=== PATIENT | male | born 1965 | race African-American/Black ===

== ENCOUNTER 2020-02-27 03:28 | Inpatient (IN) | payer OTHER ==
[2020-02-27] MEDS ORDERED: Morphine 4 MG/ML VIAL ONE (03:46)
[2020-02-27] MEDS ORDERED: Ondansetron PF 4 MG/2 ML Vial ONE ×2 (03:47→04:12)
[2020-02-27 04:07] LABS: Bacteria/HPF None Seen HPF (None Seen); Bilirubin Negative (Negative); Blood, Urine Negative (Negative); Clarity Clear (Clear); Glucose, Urine (Dipstick) Normal (Negative); Leukocyte Negative Leu/uL (Negative); Nitrite Negative (Negative); Protein, Urine (Dipstick) 30 mg/dL (Neg-Trace); RBC/HPF 0-3 HPF (0-3); Renal Epithelial 0-3 HPF (None Seen); Squamous Epithelial 0-3 HPF (0-3); WBC/HPF 0-3 HPF (0-3)
[2020-02-27 04:24] LABS: #Lymphocytes 2.2 thou/uL (1.20-3.40); #Monocytes 0.8 thou/uL (0.11-0.59); #Neutrophils 6.7 thou/uL (1.40-6.50); %Basophils 0.5 % (0.0-1.0); %Eosinophils 0.4 % (0.0-10.0); %Lymphocytes 22.7 % (21.0-51.0); %Monocytes 8.3 % (0.0-10.0); %Neutrophils 68.2 % (42.0-75.0); Hemoglobin 14.4 g/dL (14.0-18.0); Mean Corpuscular HGB CONC 35.6 g/dL (32.0-36.0); Mean Corpuscular Hemoglobin 35.5 pg (27.0-31.0); Mean Corpuscular Volume 99.6 fL (78.0-98.0); Mean Platelet Volume 9.8 fL (7.4-10.4); Platelet Count 199 thou/uL (130-400); RBC Distribution Width 12.5 % (11.5-14.5); Red Blood Cell (RBC) Count 4.06 mill/uL (4.70-6.10); White Blood Cell (WBC) Count 9.8 thou/uL (4.8-10.8)
[2020-02-27 04:54] LABS: Lipase 1430 U/L (8-78)
[2020-02-27 05:01] LABS: ALT (SGPT) 46 U/L (8-55); AST (SGOT) 57 U/L (5-34); Albumin 3.3 g/dL (3.5-5.0); Alkaline Phosphatase 87 U/L (40-110); Anion Gap 15 mmol/L (10-20); BUN (Urea Nitrogen) 7 mg/dL (8.4-25.7); Bilirubin, Total 2.7 mg/dL (0.2-1.2); Calc. Creatinine Clearance 0 mL/min (70-130); Calcium 8.3 mg/dL (7.8-10.44); Carbon Dioxide 21 mmol/L (22-29); Chloride 95 mmol/L (98-107); Estimated GFR-MDRD Greater than 90; Globulin 5.8 g/dL (2.4-3.5); Glucose 131 mg/dL (70-105); Potassium 3.5 mmol/L (3.5-5.1); Protein, Total 9.1 g/dL (6.0-8.3); Sodium 127 mmol/L (136-145)
[2020-02-27] MEDS ORDERED: Ondansetron PF 4 MG/2 ML Vial IVP PRN (05:35)
--- NOTE | 2020-02-27 06:06 | HP ---
CHIEF COMPLAINT: Abdominal pain. HISTORY: This patient is a 54-year-old male, who presented via the emergency department. The patient was last admitted here in 2013 with pancreatitis related to alcohol abuse. The patient presented again today with similar findings. The patient reports that he was drinking as usual on his days of Monday and Monday, drinks up to 18 beers at that time. He was at work today, around 11 o'clock started experiencing some sharp pain across his upper abdomen and radiating to his back. He forced himself to vomit thinking it might help, but it did not, eating made it worse, ultimately came to the point where he could not tolerate it anymore, so he came to the emergency department. Denies any fevers, chills, diarrhea or constipation. REVIEW OF SYSTEMS: All other systems reviewed. All other systems were negative except for those things mentioned in history of present illness. PAST MEDICAL HISTORY: Notable for pancreatitis and alcohol abuse. PAST SURGICAL HISTORY: None. FAMILY HISTORY: Father has diabetes. He is unsure of his mother's situation. ALLERGIES: NONE. MEDICATIONS: None. PHYSICAL EXAMINATION: VITAL SIGNS: BP 127/108, pulse 106, respirations 14, and O2 sat 93% on room air. GENERAL APPEARANCE: Age-appropriate male, in no distress, awake, alert, oriented, pleasant, and cooperative. HEENT: PERRL. No OP lesions. NECK: Supple and symmetric. HEART: Regular rate and rhythm without murmurs, gallops or rubs. LUNGS: Clear to auscultation bilaterally with good chest wall expansion and air exchange. ABDOMEN: Soft and nondistended. Diffusely tender across the entire upper abdomen with modest voluntary guarding. No rebound. No hepatosplenomegaly. EXTREMITIES: No cyanosis, clubbing or edema. PSYCHIATRIC: Normal affect and behavior. NEUROLOGIC: Cognitively intact. Cranial nerves intact. No evidence of focal deficits. LABORATORY DATA: White count 9.8, hemoglobin 14.4, and platelets 199. Sodium 127, potassium 3.5, chloride 95, CO2 of 21, BUN 7, creatinine 0.79, and glucose 131. Total bilirubin 2.7, AST 57, and ALT 46. Lipase 1430. Urinalysis negative. DIAGNOSTIC DATA: CT abdomen and pelvis consistent with inflammation around the pancreas. IMPRESSION AND PLAN: 1. Pancreatitis and the patient with a history of pancreatitis and ongoing binge alcohol abuse. The patient will be admitted for IV fluids, pain control, and n.p.o. status. Given his slight elevation in bilirubin, may need to consider ultrasound, but certainly appears to be related to his alcohol abuse. 2. Alcohol abuse. We will give B12 and folate given his slight elevation of his MCV, although it appears to be more binge alcohol abuse rather than chronic daily use. 3. Hyponatremia, likely secondary to beer potomania. Poor intake of protein. We will see if we can get that to improve with IV fluids alone. 4. Disposition: The patient is full code. His son would be his surrogate decision maker. Job ID: [id number] MTDD
[2020-02-27 06:15] VITALS: BMI 23.6
[2020-02-27] MEDS: Morphine 2 MG/ML SYRINGE SLOW IVP PRN ×3 (06:23→23:41)
[2020-02-27] MEDS: Sodium Chloride 0.9% 1,000 ML IV SCH ×2 (06:24→21:25)
--- NOTE | 2020-02-27 08:14 | CT ---
PRELIMINARY REPORT/[facility]/EMERGENCY AFTER HOURS PROCEDURE: EXAM: CT Abdomen and Pelvis with Intravenous Contrast CLINICAL HISTORY: M54 presents to the ED with c/o upper abdominal and back pain since for 24 hours. Pt denies having n/ v today. Pt reports 24 hours of diffuse pain. No urinary s/s and no change in bowel movements. TECHNIQUE: Axial computed tomography images of the abdomen and pelvis with intravenous contrast. CONTRAST: With; ISOVUE 370,100mL COMPARISON: None provided. FINDINGS: LUNG BASES: No basilar airspace consolidation or pleural effusion. LIVER: There is a mild to moderate hepatomegaly. GALLBLADDER AND BILE DUCTS: Unremarkable. No calcified stone. No ductal dilation. PANCREAS: The pancreatic body and head is enlarged with soft tissue stranding, findings consistent wi th acute pancreatitis. SPLEEN: Unremarkable. ADRENAL GLANDS: Unremarkable. KIDNEYS, URETERS, AND BLADDER: Unremarkable. No hydronephrosis or nephrolithiasis. No ureteral or sam dder calculi. STOMACH AND BOWEL: The adjacent body of the stomach and the transverse colon showed wall thickening w ith soft tissue stranding, likely due to pancreatitis. No bowel obstruction. APPENDIX: No CT evidence for appendicitis. PERITONEUM: Small amount of ascites seen. LYMPH NODES: No lymphadenopathy. REPRODUCTIVE: Unremarkable as visualized. VASCULATURE: No aortic aneurysm. BONES: No fracture or suspicious osseous abnormality. ABDOMINAL WALL AND SOFT TISSUES: Unremarkable. IMPRESSION: 1. The pancreatic body and head is enlarged with soft tissue stranding, findings consistent with acut e pancreatitis. 2. The adjacent body of the stomach and the transverse colon showed wall thickening with soft tissue stranding, likely due to pancreatitis. 3. Small amount of ascites seen. 4. There is a mild to moderate hepatomegaly. ELECTRONICALLY SIGNED BY: Daniel Ramírez MD Feb 27, 2020 4:25:04 AM CDT This report is intended for review by the ordering physician only, in accordance of law. If you recei ve this report in error, please call [facility] at [phone]. FINAL REPORT BY DR. [facility] EMER[facility] AFTER HOURS STUDY CT ABDOMEN WITH CONTRAST CT PELVIS WITH CONTRAST: DATE: 02/27/2020 TIME: 0407 HOURS HISTORY: 54-year-old male with upper abdominal and back pain. COMPARISON: 09/14/2014. TECHNIQUE: IV injection of iodinated contrast media: 100 mL Isovue-370. Oral contrast media: Not administered. FINDINGS: Once again, the pancreatic head is enlarged, but this time greater than before, with heterogeneously minimally decreased enhancement. The pancreatic head is infiltrated by, and surrounded by a moderate volume of unorganized fluid which infiltrates the surrounding mesentery and retroperitoneal fat, extr insically compressing and narrowing the second stage of the duodenum. There is mural thickening of th e second and third stages of duodenum, secondarily involved by this pancreatic inflammatory process. The fluid tracks along the right anterior pararenal space and Morison's pouch, and travels down the r ight paracolic gutter. It spills over into the pelvic cavity centrally and bilaterally where there is a small to moderate amount of free fluid. Urinary bladder is decompressed. The inflammatory process at the pancreatic head appears worse than on the 2014 CT, although the volume of fluid tracking infer iorly is slightly less on the current study compared to previous. Liver is mildly enlarged, and has diffusely low attenuation, suggestive of fatty liver. No portal vei n thrombosis. No splenomegaly. No varices. There is also mural thickening of the mid and right transv erse colon and hepatic flexure of the colon, probably secondarily involved by the infiltrative fluid in the mesentery and portion of the upper omentum. No small bowel dilation. No pancreatic ductal dila tion. Pancreatic tail is normal. Pancreatic body is partially involved by the inflammatory process. N ormal kidneys, adrenals, and abdominal aorta. Normal appendix. This report agrees with the preliminary report by [facility]. Lung bases are grossly clear. No ascites or pneumoperitoneum. Agree with preliminary report by [facility]. IMPRESSION: 1. Moderately severe acute pancreatitis, borderline early necrotizing pancreatitis. 2. Mild hepatomegaly and probable hepatic steatosis. JNR POS: RODRIGO
[2020-02-27] MEDS: Multivitamins, Adult 10 ML, Folic Acid 1 MG, Thiamine HCl 100 MG in Dextrose 5 %-0.45 %... IV SCH (09:36)
[2020-02-27] MEDS: Enoxaparin Sodium 40 MG/0.4 ML SYRINGE SC SCH (09:40)
[2020-02-27] MEDS ORDERED: Iopamidol 370 76% 100 ML VIAL ONE (14:08)
[2020-02-27] MEDS: Acetaminophen 325 MG TAB PO PRN (16:57)
[2020-02-27] MEDS: Piperacillin/Tazobactam 3.375 GM in Sodium Chloride 0.9% 100 ML IVPB SCH ×2 (18:25→23:43)
[2020-02-28] MEDS: Acetaminophen 325 MG TAB PO PRN (00:37)
[2020-02-28] MEDS: Piperacillin/Tazobactam 3.375 GM in Sodium Chloride 0.9% 100 ML IVPB SCH ×3 (05:17→16:59)
[2020-02-28] MEDS: Multivitamins, Adult 10 ML, Folic Acid 1 MG, Thiamine HCl 100 MG in Dextrose 5 %-0.45 %... IV SCH (06:32)
[2020-02-28 06:43] LABS: ALT (SGPT) 30 U/L (8-55); AST (SGOT) 40 U/L (5-34); Albumin 2.6 g/dL (3.5-5.0); Alkaline Phosphatase 65 U/L (40-110); Anion Gap 13 mmol/L (10-20); BUN (Urea Nitrogen) 6 mg/dL (8.4-25.7); Bilirubin, Total 2.8 mg/dL (0.2-1.2); Calc. Creatinine Clearance 100 mL/min (70-130); Calcium 8.2 mg/dL (7.8-10.44); Carbon Dioxide 21 mmol/L (22-29); Chloride 105 mmol/L (98-107); Estimated GFR-MDRD Greater than 90; Globulin 4.3 g/dL (2.4-3.5); Glucose 90 mg/dL (70-105); Lipase 463 U/L (8-78); Potassium 3.5 mmol/L (3.5-5.1); Protein, Total 6.9 g/dL (6.0-8.3); Sodium 135 mmol/L (136-145)
[2020-02-28] MEDS: Enoxaparin Sodium 40 MG/0.4 ML SYRINGE SC SCH (10:11)
[2020-02-28 19:06] VITALS: BP 150/77; TEMP 99.3
--- NOTE | 2020-02-28 23:40 | DIS ---
DATE OF ADMISSION: 02/27/2020 DATE OF DISCHARGE: 02/28/2020 BRIEF DISCHARGE DIAGNOSES: Acute pancreatitis, hyponatremia, transaminitis. CONSULTATIONS: None. PROCEDURES PERFORMED: None. BRIEF HISTORY OF PRESENT ILLNESS: This is a 54-year-old male with a past medical history of alcohol abuse, pancreatitis in the past, who had presented with abdominal pain radiating to his back that progressively got worse. He denied any fevers or chills. Upon presentation to the ER, he was noted to be tachycardic to 106. His lipase was elevated at 1430 and his sodium was noted to be 127. His AST was elevated at 57. The patient did report drinking 18 beers on Monday and Monday. He had a CT scan of his abdomen and pelvis, which showed findings consistent with acute pancreatitis. He was admitted for further evaluation. HOSPITAL COURSE: Acute pancreatitis/alcohol abuse: The patient was kept n.p.o. He was given IV fluid hydration and IV morphine. He was transitioned to regular diet which he tolerated without any pain. He was determined to be stable for discharge. He was advised to avoid alcohol to prevent recurrent attacks of pancreatitis. Alcohol abuse: The patient was advised to stop drinking alcohol. He was given thiamine and folic acid on discharge due to elevated MCV. Hyponatremia: The patient did have a sodium of 127. He was given IV fluids, which improved to 137 on the day of discharge. Transaminitis: The patient had AST 57, which improved to 40 on the day of discharge. This is likely secondary to alcoholism. He was advised to have his LFTs repeated in a week. DISCHARGE PHYSICAL EXAMINATION: VITAL SIGNS: Temperature 98.8, heart rate 98, respiratory rate 20, O2 saturation 97% on room air, blood pressure 110/74. GENERAL: The patient is alert, awake, oriented x3. CVS: Regular rate and rhythm with no murmurs, rubs, or gallops. LUNGS: Clear to auscultation bilaterally. ABDOMEN: Positive bowel sounds, mild epigastric tenderness and right upper quadrant tenderness. No rebound, guarding, or rigidity. Abdomen is slightly firm to palpation. EXTREMITIES: No edema. LABORATORY DATA: CBC 02/26: Unremarkable. BMP 02/26: Sodium 127. BMP 02/27: Sodium is 135. LFTs 02/27: AST 40, ALT 30, alkaline phosphatase 65. Lipase: 1430, which improved to 463. IMAGING: CT abdomen and pelvis 02/26: Pancreatic body and has enlarged soft tissue stranding consistent with acute pancreatitis. Adjacent body of the stomach and transverse colon showed wall thickening with soft tissue stranding due to pancreatitis. Small amount of ascites is seen. Mild to moderate hepatomegaly. DISCHARGE CONDITION: Stable. ACTIVITY: As tolerated. DIET: Heart healthy diet. DISCHARGE INSTRUCTIONS: The patient to follow up with his PCP in a week. He should have repeat LFTs done in a week. Take thiamine and folic acid supplements daily. Job ID: [id number] [facility]
--- NOTE | 2020-02-29 09:22 | EKG ---
Test Reason : Blood Pressure : / mmHG Vent. Rate : 119 BPM Atrial Rate : 119 BPM P-R Int : 130 ms QRS Dur : 062 ms QT Int : 318 ms P-R-T Axes : 059 034 042 degrees QTc Int : 447 ms Sinus tachycardia Possible Left atrial enlargement Borderline ECG Confirmed by LISA OCASIO ([id number]), video news editor ABDIRIZAK AMBRIZ ([id number]) on 02/29/2020 9:22:11 AM Referred By: Confirmed By:LISA OCASIO
== END 2020-02-28 19:07 | disposition home or self-care (01) | DRG 439 ==
LOC: ERS 03:28 → T4-A 05:12
PROVIDERS: ADMIT Internal Medicine; ATTEND Internal Medicine
DX: K85.90 Acute pancreatitis without necrosis or infection, unspecified (principal); E87.1 Hypo-osmolality and hyponatremia; F10.20 Alcohol dependence, uncomplicated
CPT/HCPCS: 36415; 74177; 80053; 81003; 81015; 83690; 85025; 87040; 93005; 96361; 96374; 96375; J1650; J2270; J2405; J2543; J3411; J3490; J7042; Q9967

== ENCOUNTER 2020-03-03 18:52 | Emergency (ER) | payer OTHER ==
[2020-03-03 19:34] LABS: Hemoglobin 10.6 g/dL (14.0-18.0); Mean Corpuscular HGB CONC 33.1 g/dL (32.0-36.0); Mean Corpuscular Hemoglobin 33.7 pg (27.0-31.0); Mean Platelet Volume 8.2 fL (7.4-10.4); Platelet Count 301 thou/uL (130-400); RBC Distribution Width 12.3 % (11.5-14.5); Red Blood Cell (RBC) Count 3.14 mill/uL (4.70-6.10); White Blood Cell (WBC) Count 8.6 thou/uL (4.8-10.8)
[2020-03-03 19:39] LABS: PTT 40.4 SEC (22.9-36.1)
[2020-03-03 19:54] LABS: ALT (SGPT) 31 U/L (8-55); AST (SGOT) 36 U/L (5-34); Albumin 3.7 g/dL (3.5-5.0); Alkaline Phosphatase 76 U/L (40-110); Anion Gap 15 mmol/L (10-20); BUN (Urea Nitrogen) 8 mg/dL (8.4-25.7); Bilirubin, Total 0.9 mg/dL (0.2-1.2); Calc. Creatinine Clearance 0 mL/min (70-130); Calcium 10.2 mg/dL (7.8-10.44); Carbon Dioxide 26 mmol/L (22-29); Chloride 99 mmol/L (98-107); Estimated GFR-MDRD Greater than 90; Glucose 85 mg/dL (70-105); Potassium 3.8 mmol/L (3.5-5.1); Protein, Total 8.7 g/dL (6.0-8.3); Sodium 136 mmol/L (136-145)
[2020-03-03 20:01] LABS: Band 2 % (5-11); Lymphocytes 15 % (21-51); MDiff Complete? YES; Macrocytosis SLIGHT = 6-15 cells (100X) (0-5/hpf); Monocytes 6 % (0-10); Neutrophil 77 % (42-75); Platelet Morphology Comment Appears Adequate; Polychromasia SLIGHT = 2-3 cells (100X) (0-2/hpf)
--- NOTE | 2020-03-03 20:12 | RAD ---
SINGLE VIEW OF THE CHEST: 03/03/20 COMPARISON: 12/16/15. HISTORY: Pancreatitis and fever. FINDINGS: Single view of the chest shows a normal sized cardiomediastinal silhouette. There is no evidence of c onsolidation, mass, or pleural effusion. The bones are unremarkable. IMPRESSION: No evidence of acute cardiopulmonary disease. POS: EAA
--- NOTE | 2020-03-03 20:18 | ULT ---
LEFT LOWER EXTREMITY VENOUS DOPPLER ULTRASOUND: 03/03/20 COMPARISON: None. HISTORY: Edema, swelling, pain, assess for DVT. TECHNIQUE: Multiplanar castillo scale sonographic imaging of the venous structures of the left [facility] with color flow and spectral analysis. FINDINGS: The common femoral vein, greater saphenous vein, and profunda femoral vein appear patent on the left. The director of reimbursement reports the inability to only partially compress the femoral vein in its mid and dis batool portions. In addition, the popliteal vein is only partially compressible. These findings are susp icious for nonocclusive DVT. Color Doppler imaging does demonstrate venous blood flow throughout the left lower extremity. Left posterior tibial vein is only partially compressible suggesting nonocclusive thrombus as well. IMPRESSION: Findings suspicious for nonocclusive DVT involving the popliteal vein and femoral vein with extension into the left posterior tibial vein. POS: ROSENDA
[2020-03-03] MEDS ORDERED: Acetaminophen 500 MG TAB ONE (20:27)
[2020-03-03 21:28] LABS: Bilirubin Negative (Negative); Blood, Urine Negative (Negative); Clarity Clear (Clear); Glucose, Urine (Dipstick) Normal (Negative); Leukocyte Negative Leu/uL (Negative); Nitrite Negative (Negative); Protein, Urine (Dipstick) Negative (Neg-Trace)
[2020-03-03] MEDS ORDERED: cefTRIAXone\\ROCEPHIN 1 GM VIAL ONE (22:36)
[2020-03-03] MEDS ORDERED: Enoxaparin Sodium 80 MG/0.8 ML SYRINGE ONE (22:36)
[2020-03-03] MEDS ORDERED: Apixaban 5 MG TAB PO SCH (22:45)
== END 2020-03-03 23:48 | disposition home or self-care (01) ==
LOC: ERS 18:52
DX: I82.432 Acute embolism and thrombosis of left popliteal vein (principal); I82.412 Acute embolism and thrombosis of left femoral vein; I82.442 Acute embolism and thrombosis of left tibial vein; L03.116 Cellulitis of left lower limb; I10 Essential (primary) hypertension; E78.5 Hyperlipidemia, unspecified
CPT/HCPCS: 71045; 80053; 81003; 83605; 85025; 85610; 85730; 87040; 87086; 96361; 96365; 96372; J0696; J1650

== ENCOUNTER 2020-03-16 11:50 | Outpatient (CLI) | payer OTHER ==
--- NOTE | 2020-03-16 12:14 | RAD ---
Exam: XR Knee Lt 3 View HISTORY: Left knee pain. Recent blood clot in left leg. Swelling in knee. COMPARISON: None FINDINGS: There is a small to moderate-sized suprapatellar left knee joint effusion. Small superior patellar en thesophyte is identified. No acute fracture, dislocation, or other acute osseous abnormality is identified. IMPRESSION: 1. No acute osseous abnormality. 2. Joint effusion. If there is concern for internal derangement, MRI left knee is recommended for fur ther evaluation.
== END 2020-03-16 11:51 | disposition home or self-care (01) ==
LOC: BICRAD 11:50
PROVIDERS: ATTEND Family Medicine
DX: M25.562 Pain in left knee (principal); M25.571 Pain in right ankle and joints of right foot; M25.462 Effusion, left knee; E78.5 Hyperlipidemia, unspecified; R53.82 Chronic fatigue, unspecified; Z77.21 Contact with and (suspected) exposure to potentially hazardous body fluids
CPT/HCPCS: 36415; 80053; 80061; 80074; 84443; 85025

== ENCOUNTER 2022-11-27 00:49 | Emergency (ER) | payer OTHER | END 2022-11-27 01:08 | disposition left against medical advice (07) | LOC: ERS 00:49 | DX: Z53.21 Procedure and treatment not carried out due to patient leaving prior to being seen by health care provider (principal) ==

== ENCOUNTER 2025-08-20 16:21 | Emergency (ER) | payer OTHER ==
[~2025-08-20 16:21] MED LIST: Iopamidol-370 76% 500 ML MDV (1 ML CHARGE) ONE
[2025-08-20 17:54] LABS: ALT (SGPT) 33 U/L (Less than 45); AST (SGOT) 141 U/L (11-34); Albumin 3.4 g/dL (3.1-4.5); Alkaline Phosphatase 106 U/L (40-110); Anion Gap 22 mmol/L (10-20); BUN (Urea Nitrogen) 17 mg/dL (8.4-25.7); Bilirubin, Total 9.9 mg/dL (0.3-1.2); Calc. Creatinine Clearance 0 mL/min (70-130); Calcium 10.3 mg/dL (7.8-10.44); Carbon Dioxide 22 mmol/L (22-29); Chloride 98 mmol/L (98-107); Globulin 5.3 g/dL (2.4-3.5); Glucose 139 mg/dL (70-105); Magnesium 1.6 mg/dL (1.6-2.6); Potassium 3.4 mmol/L (3.5-5.1); Sodium 139 mmol/L (136-145)
[2025-08-20 17:57] LABS: #Basophils 0.07 10x3/uL (0.0-0.2); #Eosinophils 0.05 10x3/uL (0.0-0.7); #Monocytes 1.33 10x3/uL (0.11-0.59); #Neutrophils 7.83 10x3/uL (1.40-6.50); %Basophils 0.7 % (0.0-1.0); %Eosinophils 0.5 % (0.0-10.0); %Lymphocytes 12.1 % (21.0-51.0); %Monocytes 12.5 % (0.0-10.0); %Neutrophils 73.2 % (42.0-75.0); Hematocrit 33.3 % (42.0-52.0); Hemoglobin 11.0 g/dL (14.0-18.0); Mean Corpuscular Hemoglobin 34.4 pg (27.0-31.0); Mean Corpuscular Volume 104.1 fL (78.0-98.0); Platelet Count 84 10x3/uL (130-400); Red Blood Cell (RBC) Count 3.20 mill/uL (4.70-6.10); White Blood Cell (WBC) Count 10.68 10x3/uL (4.8-10.8)
[2025-08-20 17:57] LABS: Cocaine Metabolite Screen Negative (Negative); THC/Cannabinoid Screen Negative (Negative); Tricyclic Screen Negative (Negative)
[2025-08-20 18:01] LABS: CAUTI Indications for Culture Pelvic or flank pain; Glucose, Urine (Dipstick) 30 mg/dL (Negative); Leukocyte Negative Leu/uL (Negative); Protein, Urine (Dipstick) 100 mg/dL (Neg-Trace); Specific Gravity, Urine 1.041 (1.002-1.036); WBC/HPF 21-50 HPF (0-3)
[2025-08-20 18:17] LABS: Bacteria/HPF 1+ HPF (None Seen)
[2025-08-20 18:18] LABS: Urine Culture Reflex Yes Yes
[2025-08-20 18:47] LABS: Anisocytosis SLIGHT = 6-15 cells HPF (0-5); Macrocytosis SLIGHT = 6-15 cells HPF (0-5); Platelet Adequacy Comment Platelets Decreased; Polychromasia SLIGHT = 2-3 cells HPF (0-2)
[2025-08-20 19:24] LABS: Lipase 102 U/L (8-78)
[2025-08-20 19:27] LABS: Acetaminophen Less than 10 mcg/mL (Less than 10); Salicylate Less than 8.0 mg/dL (Less than 8.0)
== END 2025-08-20 20:08 | disposition home or self-care (01) ==
LOC: ERS 16:21
DX: K76.9 Liver disease, unspecified (principal); R53.1 Weakness; I10 Essential (primary) hypertension
CPT/HCPCS: 36415; 36416; 71045; 74177; 80053; 80306; 80307; 81001; 82140; 82550; 83605; 83690; 83735; 84443; 84484; 85025; 87086; 87428; 93005; Q9967

== ENCOUNTER 2025-09-05 04:59 | Inpatient (IN) | payer OTHER ==
[2025-09-05] MEDS ORDERED: Cefepime 2 GM VIAL ONE (06:34)
[2025-09-05 07:06] LABS: %Lymphocytes 11.9 % (21.0-51.0); Hemoglobin 9.0 g/dL (14.0-18.0); Mean Corpuscular Volume 101.1 fL (78.0-98.0)
[2025-09-05 07:19] LABS: ALT (SGPT) 15 U/L (Less than 45); AST (SGOT) 53 U/L (11-34); Albumin 2.7 g/dL (3.1-4.5); Alkaline Phosphatase 93 U/L (40-110); Anion Gap 15 mmol/L (10-20); BUN (Urea Nitrogen) 5 mg/dL (8.4-25.7); Bilirubin, Total 3.2 mg/dL (0.3-1.2); Calc. Creatinine Clearance 0 mL/min (70-130); Calcium 8.6 mg/dL (7.8-10.44); Carbon Dioxide 20 mmol/L (22-29); Chloride 100 mmol/L (98-107); Globulin 5.0 g/dL (2.4-3.5); Glucose 97 mg/dL (70-105); Potassium 3.4 mmol/L (3.5-5.1); Sodium 132 mmol/L (136-145)
[2025-09-05 07:37] LABS: #Basophils 0.13 10x3/uL (0.0-0.2); #Eosinophils 0.06 10x3/uL (0.0-0.7); #Monocytes 1.26 10x3/uL (0.11-0.59); #Neutrophils 9.84 10x3/uL (1.40-6.50); %Basophils 1.0 % (0.0-1.0); %Eosinophils 0.5 % (0.0-10.0); %Monocytes 9.8 % (0.0-10.0); %Neutrophils 76.2 % (42.0-75.0); Hematocrit 27.3 % (42.0-52.0); Mean Corpuscular Hemoglobin 33.3 pg (27.0-31.0); Platelet Count 253 10x3/uL (130-400); Red Blood Cell (RBC) Count 2.70 mill/uL (4.70-6.10); White Blood Cell (WBC) Count 12.90 10x3/uL (4.8-10.8)
[2025-09-05 08:43] LABS: Bacteria/HPF None Seen HPF (None Seen); CAUTI Indications for Culture Dysuria,urgency,freq; Glucose, Urine (Dipstick) Normal (Negative); Leukocyte Negative Leu/uL (Negative); Protein, Urine (Dipstick) Negative (Neg-Trace); RBC/HPF 0-3 HPF (0-3); Specific Gravity, Urine 1.033 (1.002-1.036); WBC/HPF 0-3 HPF (0-3)
[2025-09-05 08:45] LABS: Urine Culture Reflex No No
[2025-09-05] MEDS ORDERED: Ondansetron PF 4 MG/2 ML Vial IVP PRN (08:51)
[2025-09-05] MEDS ORDERED: Guaifenesin DM 100-10/5 ML UDCUP PO PRN (08:51)
[2025-09-05] MEDS ORDERED: Senokot S 8.6-50 MG TAB PO PRN (08:51)
[2025-09-05] MEDS ORDERED: Electrolyte Replacement Protocol 1 EACH FS SCH ×2 (09:00)
[2025-09-05 09:19] LABS: #Basophils 0.11 10x3/uL (0.0-0.2); #Eosinophils Less than 0.03 10x3/uL (0.0-0.7); #Monocytes 1.34 10x3/uL (0.11-0.59); #Neutrophils 10.61 10x3/uL (1.40-6.50); %Basophils 0.8 % (0.0-1.0); %Eosinophils 0.1 % (0.0-10.0); %Lymphocytes 11.6 % (21.0-51.0); %Monocytes 9.8 % (0.0-10.0); %Neutrophils 77.2 % (42.0-75.0); Hematocrit 25.8 % (42.0-52.0); Hemoglobin 8.3 g/dL (14.0-18.0); Mean Corpuscular Hemoglobin 32.8 pg (27.0-31.0); Mean Corpuscular Volume 102.0 fL (78.0-98.0); Platelet Count 222 10x3/uL (130-400); Red Blood Cell (RBC) Count 2.53 mill/uL (4.70-6.10); White Blood Cell (WBC) Count 13.74 10x3/uL (4.8-10.8)
[2025-09-05 09:35] LABS: Bilirubin, Direct 1.9 mg/dL (0.1-0.3)
[2025-09-05 09:36] LABS: ALT (SGPT) 14 U/L (Less than 45); AST (SGOT) 44 U/L (11-34); Albumin 2.4 g/dL (3.1-4.5); Alkaline Phosphatase 82 U/L (40-110); Anion Gap 11 mmol/L (10-20); BUN (Urea Nitrogen) 6 mg/dL (8.4-25.7); Bilirubin, Total 2.8 mg/dL (0.3-1.2); Calc. Creatinine Clearance 0 mL/min (70-130); Calcium 8.0 mg/dL (7.8-10.44); Carbon Dioxide 18 mmol/L (22-29); Chloride 104 mmol/L (98-107); Globulin 4.3 g/dL (2.4-3.5); Glucose 96 mg/dL (70-105); Magnesium 1.4 mg/dL (1.6-2.6); Potassium 3.6 mmol/L (3.5-5.1); Sodium 129 mmol/L (136-145)
[2025-09-05] MEDS: Magnesium Sulfate In Water 4 GM in Premix 1 BAG IVPB SCH (10:53)
[2025-09-05] MEDS: VANCOMYCIN 1.75 GM/350 ML BAG 1.75 GM in Premix 1 BAG IVPB SCH (10:59)
[2025-09-05] MEDS ORDERED: Iopamidol-370 76% 500 ML MDV (1 ML CHARGE) ONE (11:57)
[2025-09-05] MEDS: Ketorolac Tromethamine 30 MG (1 mL) VIAL IVP PRN (12:42)
[2025-09-05 13:00] LABS: Cocaine Metabolite Screen Negative (Negative); THC/Cannabinoid Screen Negative (Negative); Tricyclic Screen Negative (Negative)
[2025-09-05] MEDS ORDERED: hydrALAZINE 20 MG/ML VIAL SLOW IVP PRN (13:01)
[2025-09-05] MEDS: Enoxaparin 40 MG (0.4 mL) SYRINGE SC SCH (13:12)
[2025-09-05 14:10] VITALS: BMI 25.8
[2025-09-05] MEDS ORDERED: PROPOFOL 20 ML ONE (14:13)
[2025-09-05] MEDS ORDERED: Vancomycin HCl 1.5 GM VIAL ONE (14:13)
[2025-09-05] MEDS ORDERED: Lidocaine 1% PF 5 ML VIAL ONE (14:13)
[2025-09-05] MEDS ORDERED: Ondansetron PF 4 MG/2 ML Vial ONE (15:22)
[2025-09-05] MEDS ORDERED: Communication Order-Pharmacy FS SCH (16:00)
[2025-09-05] MEDS: Multivit, Therapeutic 1 TAB PO SCH (17:57)
[2025-09-05] MEDS: Folic Acid 1 MG TAB PO SCH (17:57)
[2025-09-05] MEDS: Ibuprofen 200 MG TAB PO SCH (23:59)
[2025-09-06 06:19] LABS: #Basophils 0.07 10x3/uL (0.0-0.2); #Eosinophils 0.18 10x3/uL (0.0-0.7); #Monocytes 1.11 10x3/uL (0.11-0.59); #Neutrophils 7.92 10x3/uL (1.40-6.50); %Basophils 0.7 % (0.0-1.0); %Eosinophils 1.7 % (0.0-10.0); %Lymphocytes 11.8 % (21.0-51.0); %Monocytes 10.5 % (0.0-10.0); %Neutrophils 74.8 % (42.0-75.0); Hematocrit 24.5 % (42.0-52.0); Hemoglobin 7.8 g/dL (14.0-18.0); Mean Corpuscular Hemoglobin 32.8 pg (27.0-31.0); Mean Corpuscular Volume 102.9 fL (78.0-98.0); Platelet Count 201 10x3/uL (130-400); Red Blood Cell (RBC) Count 2.38 mill/uL (4.70-6.10); White Blood Cell (WBC) Count 10.58 10x3/uL (4.8-10.8)
[2025-09-06 06:40] LABS: Vancomycin, Random 20.1 ug/mL (See Comment)
[2025-09-06 06:42] LABS: ALT (SGPT) 8 U/L (Less than 45); AST (SGOT) 37 U/L (11-34); Albumin 2.1 g/dL (3.1-4.5); Alkaline Phosphatase 81 U/L (40-110); Anion Gap 10 mmol/L (10-20); BUN (Urea Nitrogen) 6 mg/dL (8.4-25.7); Bilirubin, Total 2.9 mg/dL (0.3-1.2); Calc. Creatinine Clearance 174 mL/min (70-130); Calcium 7.6 mg/dL (7.8-10.44); Carbon Dioxide 20 mmol/L (22-29); Chloride 109 mmol/L (98-107); Globulin 4.2 g/dL (2.4-3.5); Glucose 82 mg/dL (70-105); Magnesium 2.1 mg/dL (1.6-2.6); Potassium 3.3 mmol/L (3.5-5.1); Sodium 136 mmol/L (136-145)
[2025-09-06] MEDS: Metoprolol Succinate XL 100 MG ER.TAB PO SCH (09:51)
[2025-09-06] MEDS: FLU (Fluarix Triv) 25-26 (6MOS UP)/PF 45 MCG/0.5 ML Syringe IM ONE (09:57)
[2025-09-06] MEDS: HYDROcodone/Acetaminophen 10/325 mg Tablet PO PRN ×2 (10:15→17:12)
[2025-09-06] MEDS: Colchicine 0.6 MG TAB PO SCH ×3 (11:45→20:15)
[2025-09-06] MEDS ORDERED: Iopamidol-370 76% 500 ML MDV (1 ML CHARGE) ONE (12:21)
[2025-09-06] MEDS: Vancomycin 1.25 GM / NS 250 ML VIAL-2-BAG IVPB SCH (20:15)
[2025-09-06] MEDS: Acetaminophen 325 MG TAB PO SCH (23:33)
[2025-09-07 06:31] LABS: #Basophils 0.07 10x3/uL (0.0-0.2); #Eosinophils 0.26 10x3/uL (0.0-0.7); #Monocytes 1.00 10x3/uL (0.11-0.59); #Neutrophils 6.88 10x3/uL (1.40-6.50); %Basophils 0.7 % (0.0-1.0); %Eosinophils 2.7 % (0.0-10.0); %Lymphocytes 14.4 % (21.0-51.0); %Monocytes 10.4 % (0.0-10.0); %Neutrophils 71.3 % (42.0-75.0); Hematocrit 25.1 % (42.0-52.0); Hemoglobin 7.9 g/dL (14.0-18.0); Mean Corpuscular Hemoglobin 32.2 pg (27.0-31.0); Mean Corpuscular Volume 102.4 fL (78.0-98.0); Platelet Count 207 10x3/uL (130-400); Red Blood Cell (RBC) Count 2.45 mill/uL (4.70-6.10); White Blood Cell (WBC) Count 9.65 10x3/uL (4.8-10.8)
[2025-09-07 06:52] LABS: Anion Gap 6 mmol/L (10-20); BUN (Urea Nitrogen) 5 mg/dL (8.4-25.7); Calc. Creatinine Clearance 170 mL/min (70-130); Calcium 8.0 mg/dL (7.8-10.44); Carbon Dioxide 20 mmol/L (22-29); Chloride 110 mmol/L (98-107); Glucose 87 mg/dL (70-105); Potassium 3.9 mmol/L (3.5-5.1); Sodium 132 mmol/L (136-145)
[2025-09-07] MEDS ORDERED: Non-Formulary Item 1 EACH (Folic Acid [Folic Acid] 0.4 MG Tablet) PO SCH (09:00)
[2025-09-07] MEDS ORDERED: hydrALAZINE 20 MG/ML VIAL SLOW IVP PRN (09:02)
[2025-09-07] MEDS: Pantoprazole 40 MG DR.TAB PO SCH (10:41)
[2025-09-07] MEDS: Acetaminophen 325 MG TAB PO PRN (15:11)
[2025-09-07] MEDS: Acetaminophen 325 MG TAB PO SCH (18:24)
[2025-09-08] MEDS: Acetaminophen 325 MG TAB PO PRN (09:52)
[2025-09-08] MEDS: Thiamine 100 MG TAB PO SCH (09:53)
[2025-09-08 11:21] LABS: #Basophils 0.09 10x3/uL (0.0-0.2); #Eosinophils 0.27 10x3/uL (0.0-0.7); #Monocytes 1.17 10x3/uL (0.11-0.59); #Neutrophils 5.91 10x3/uL (1.40-6.50); %Basophils 1.0 % (0.0-1.0); %Eosinophils 3.1 % (0.0-10.0); %Lymphocytes 13.4 % (21.0-51.0); %Monocytes 13.6 % (0.0-10.0); %Neutrophils 68.6 % (42.0-75.0); Hematocrit 25.9 % (42.0-52.0); Hemoglobin 8.1 g/dL (14.0-18.0); Mean Corpuscular Hemoglobin 32.7 pg (27.0-31.0); Mean Corpuscular Volume 104.4 fL (78.0-98.0); Platelet Count 223 10x3/uL (130-400); Red Blood Cell (RBC) Count 2.48 mill/uL (4.70-6.10); White Blood Cell (WBC) Count 8.63 10x3/uL (4.8-10.8)
[2025-09-08 12:00] LABS: Anion Gap 11 mmol/L (10-20); BUN (Urea Nitrogen) 4 mg/dL (8.4-25.7); Calc. Creatinine Clearance 189 mL/min (70-130); Calcium 8.3 mg/dL (7.8-10.44); Carbon Dioxide 18 mmol/L (22-29); Chloride 106 mmol/L (98-107); Glucose 116 mg/dL (70-105); Potassium 3.4 mmol/L (3.5-5.1); Sodium 132 mmol/L (136-145)
[2025-09-08] MEDS ORDERED: Magnesium 2 GM/50 ML(in water) 2 GM in Premix 1 BAG IVPB PRN (12:30)
[2025-09-08] MEDS ORDERED: PHOS-NAK 1 PKT PACK PO PRN (12:30)
[2025-09-08] MEDS ORDERED: Potassium Chloride 20 MEQ in Premix 1 BAG IVPB PRN (12:30)
[2025-09-08 12:34] LABS: Bacteria/HPF None Seen HPF (None Seen); CAUTI Indications for Culture Fever or rigors; Glucose, Urine (Dipstick) Normal (Negative); Leukocyte Negative Leu/uL (Negative); Protein, Urine (Dipstick) Negative (Neg-Trace); RBC/HPF 0-3 HPF (0-3); Specific Gravity, Urine 1.011 (1.002-1.036); WBC/HPF 0-3 HPF (0-3)
[2025-09-08 12:36] LABS: Urine Culture Reflex No No
[2025-09-08] MEDS: NIFEdipine XL 30 MG ER.TAB PO SCH (21:02)
[2025-09-09 00:24] LABS: Chlam.trachomatis by PCR,Urine Not Detected (NotDetected); GC N.gonorrhoeae PCR,UrineVOID Not Detected (NotDetected)
[2025-09-09 00:45] LABS: Hep B Core IgM Index 0.10 S/CO (0-0.79)
[2025-09-09 01:27] LABS: Hep B Core Total Ab NONREACTIVE (NonReactive); Hep B Core Total Index 0.52 S/CO (0-0.79); Hep C IgG Ab NONREACTIVE S/CO (NonReactive); Hep C Index 0.19 S/CO (0-0.79)
[2025-09-09 05:40] LABS: Vancomycin, Random 11.6 ug/mL (See Comment)
[2025-09-09 05:45] LABS: Anion Gap 14 mmol/L (10-20); BUN (Urea Nitrogen) Less than 4 mg/dL (8.4-25.7); Calc. Creatinine Clearance 198 mL/min (70-130); Calcium 8.6 mg/dL (7.8-10.44); Carbon Dioxide 20 mmol/L (22-29); Chloride 105 mmol/L (98-107); Glucose 83 mg/dL (70-105); Potassium 3.5 mmol/L (3.5-5.1); Sodium 135 mmol/L (136-145)
[2025-09-09 05:55] LABS: #Basophils 0.08 10x3/uL (0.0-0.2); #Eosinophils 0.51 10x3/uL (0.0-0.7); #Monocytes 1.05 10x3/uL (0.11-0.59); #Neutrophils 4.67 10x3/uL (1.40-6.50); %Basophils 1.0 % (0.0-1.0); %Eosinophils 6.6 % (0.0-10.0); %Lymphocytes 17.7 % (21.0-51.0); %Monocytes 13.6 % (0.0-10.0); %Neutrophils 60.5 % (42.0-75.0); Hematocrit 25.7 % (42.0-52.0); Hemoglobin 8.2 g/dL (14.0-18.0); Mean Corpuscular Hemoglobin 32.4 pg (27.0-31.0); Mean Corpuscular Volume 101.6 fL (78.0-98.0); Platelet Count 289 10x3/uL (130-400); Red Blood Cell (RBC) Count 2.53 mill/uL (4.70-6.10); White Blood Cell (WBC) Count 7.73 10x3/uL (4.8-10.8)
[2025-09-09 11:29] LABS: ANA Symphony (Qualitative) Negative (Negative); ANA Symphony (Quantitative) 0.2 Ratio (< 0.7 Negative); dsDNA IgG Antibody 4.8 IU/mL (<10 Negative)
[2025-09-09] MEDS: Vancomycin 1.5 GM / NS 500 ML VIAL-2-BAG IVPB SCH (21:06)
[2025-09-10 05:11] LABS: #Basophils 0.07 10x3/uL (0.0-0.2); #Eosinophils 0.46 10x3/uL (0.0-0.7); #Monocytes 1.04 10x3/uL (0.11-0.59); #Neutrophils 3.47 10x3/uL (1.40-6.50); %Basophils 1.1 % (0.0-1.0); %Eosinophils 6.9 % (0.0-10.0); %Lymphocytes 23.9 % (21.0-51.0); %Monocytes 15.6 % (0.0-10.0); %Neutrophils 52.0 % (42.0-75.0); Hematocrit 26.6 % (42.0-52.0); Hemoglobin 8.7 g/dL (14.0-18.0); Mean Corpuscular Hemoglobin 32.8 pg (27.0-31.0); Mean Corpuscular Volume 100.4 fL (78.0-98.0); Platelet Count 306 10x3/uL (130-400); Red Blood Cell (RBC) Count 2.65 mill/uL (4.70-6.10); White Blood Cell (WBC) Count 6.66 10x3/uL (4.8-10.8)
[2025-09-10 05:28] LABS: Anion Gap 13 mmol/L (10-20); BUN (Urea Nitrogen) 4 mg/dL (8.4-25.7); Calc. Creatinine Clearance 198 mL/min (70-130); Calcium 8.9 mg/dL (7.8-10.44); Carbon Dioxide 24 mmol/L (22-29); Chloride 106 mmol/L (98-107); Glucose 80 mg/dL (70-105); Potassium 3.5 mmol/L (3.5-5.1); Sodium 139 mmol/L (136-145)
[2025-09-11 08:15] LABS: #Basophils 0.08 10x3/uL (0.0-0.2); #Eosinophils 0.59 10x3/uL (0.0-0.7); #Monocytes 0.75 10x3/uL (0.11-0.59); #Neutrophils 3.71 10x3/uL (1.40-6.50); %Basophils 1.2 % (0.0-1.0); %Eosinophils 8.5 % (0.0-10.0); %Lymphocytes 25.6 % (21.0-51.0); %Monocytes 10.8 % (0.0-10.0); %Neutrophils 53.6 % (42.0-75.0); Hematocrit 28.1 % (42.0-52.0); Hemoglobin 9.4 g/dL (14.0-18.0); Mean Corpuscular Hemoglobin 32.9 pg (27.0-31.0); Mean Corpuscular Volume 98.3 fL (78.0-98.0); Platelet Count 413 10x3/uL (130-400); Red Blood Cell (RBC) Count 2.86 mill/uL (4.70-6.10); White Blood Cell (WBC) Count 6.92 10x3/uL (4.8-10.8)
[2025-09-11 08:26] LABS: Anion Gap 16 mmol/L (10-20); BUN (Urea Nitrogen) 4 mg/dL (8.4-25.7); Calc. Creatinine Clearance 194 mL/min (70-130); Calcium 9.0 mg/dL (7.8-10.44); Carbon Dioxide 27 mmol/L (22-29); Chloride 100 mmol/L (98-107); Glucose 85 mg/dL (70-105); Potassium 3.3 mmol/L (3.5-5.1); Sodium 140 mmol/L (136-145)
[2025-09-11 08:27] LABS: CRP, High Sensitivity at Bryan 8.02 mg/dL (< or = 0.5)
[2025-09-11] MEDS: Losartan 25 MG TAB PO SCH (08:58)
[2025-09-11 16:20] VITALS: BP 139/83; TEMP 97.8
== END 2025-09-11 14:35 | disposition home or self-care (01) | DRG 872 ==
LOC: ERS 04:59 → T4-B 08:52
PROVIDERS: ADMIT Hospitalist; ATTEND Hospitalist
PROC: 0X9H0ZZ Drainage of Left Wrist Region, Open Approach (ICD-10-PCS; principal; 2025-09-05)
PROC: 3E03329 Introduction of Other Anti-infective into Peripheral Vein, Percutaneous Approach (ICD-10-PCS; 2025-09-05)
PROC: 3E02340 Introduction of Influenza Vaccine into Muscle, Percutaneous Approach (ICD-10-PCS; 2025-09-06)
DX: A41.9 Sepsis, unspecified organism (principal); L03.114 Cellulitis of left upper limb; E87.20 Acidosis, unspecified; I10 Essential (primary) hypertension; E78.5 Hyperlipidemia, unspecified; K74.60 Unspecified cirrhosis of liver; F10.10 Alcohol abuse, uncomplicated; E87.6 Hypokalemia; M25.431 Effusion, right wrist; R50.9 Fever, unspecified; M10.9 Gout, unspecified; R53.81 Other malaise; Z79.899 Other long term (current) drug therapy
CPT/HCPCS: 36415; 71045; 80048; 80053; 80202; 80306; 81001; 82248; 83605; 83735; 84100; 84145; 84550; 85025; 86038; 86141; 86225; 86704; 86705; 86803; 87040; 87070; 87081; 87205; 87491; 87591; 88305; 89060; 96365; 96366; 96367; 96375; J0692; J1650; J1885; J2270; J2405; J2704; J3010; J3373; J3375; J3411; J3475; J7030; J7050; J7120; Q9967